=== PATIENT | male | born 1955 | race Caucasian/White ===

== ENCOUNTER → 2016-08-24 | Outpatient (REF) | payer BC | LOC: M SFHCPLAZ 11:25 | PROVIDERS: ATTEND Dermatology | DX: L81.4 Other melanin hyperpigmentation (principal); L57.0 Actinic keratosis ==

== ENCOUNTER → 2016-11-21 | Outpatient (REF) | payer BC | LOC: M SFHCPLAZ 12:00 | PROVIDERS: ATTEND Dermatology | DX: L90.5 Scar conditions and fibrosis of skin (principal) ==

== ENCOUNTER → 2019-02-20 | Outpatient (REF) | payer BC ==
[~2019-02-20] MED LIST: 3ML25MIS IM; ASPI81TA26 PO; ATOR1TAB19 PO; B-12500T2 PO; CALC1CAP31 PO; CINA30TA4 PO; CLON-383 PO; CRANCAP10 PO; CYAN1000VL IM; FISH7.5C PO; FOLBTAB3 PO; FOLI1TAB11 PO; GLYB25TA PO; IMUR50TA10 PO; MONUROL PO; PRED5TA PO
== END ==
LOC: M LAB LCGH 11:33
PROVIDERS: ATTEND Physician Assistant
DX: D04.21 Carcinoma in situ of skin of right ear and external auricular canal (principal)

== ENCOUNTER → 2019-10-09 | Outpatient (REF) | payer BC | LOC: M LAB REF 18:59 | PROVIDERS: ATTEND Dermatology | DX: C44.629 Squamous cell carcinoma of skin of left upper limb, including shoulder (principal) ==

== ENCOUNTER → 2019-12-09 | Outpatient (REF) | payer BC | LOC: M LAB REF 17:13 | PROVIDERS: ATTEND Dermatology | DX: T81.30XA Disruption of wound, unspecified, initial encounter (principal) ==

== ENCOUNTER → 2019-12-18 | Outpatient (REF) | payer BC | LOC: M LAB REF 16:50 | PROVIDERS: ATTEND Physician Assistant | DX: L57.0 Actinic keratosis (principal) ==

== ENCOUNTER → 2020-01-12 | Outpatient (REF) | payer BC | LOC: M LAB REF 17:10 | PROVIDERS: ATTEND Physician Assistant | DX: C44.509 Unspecified malignant neoplasm of skin of other part of trunk (principal) ==

== ENCOUNTER → 2020-03-04 | Outpatient (REF) | payer BC | LOC: M LAB REF 09:00 | PROVIDERS: ATTEND Dermatology | DX: Z85.828 Personal history of other malignant neoplasm of skin (principal) ==

== ENCOUNTER → 2020-09-30 | Outpatient (REF) | payer BC ==
[~2020-09-30] MED LIST changes: +GLYB2.5T7 PO; -GLYB25TA PO
== END ==
LOC: M LAB REF 15:49
PROVIDERS: ATTEND Physician Assistant
DX: L98.9 Disorder of the skin and subcutaneous tissue, unspecified (principal)

== ENCOUNTER → 2020-11-03 | Outpatient (REF) | payer BC | LOC: M LAB REF 09:35 | PROVIDERS: ATTEND Physician Assistant | DX: L57.0 Actinic keratosis (principal); D23.62 Other benign neoplasm of skin of left upper limb, including shoulder ==

== ENCOUNTER → 2021-08-17 | Outpatient (REF) | payer BC | LOC: M SFHCDERM 17:18 | PROVIDERS: ATTEND Physician Assistant | DX: B07.8 Other viral warts (principal) ==

== ENCOUNTER → 2021-11-15 | Outpatient (REF) | payer BC | LOC: M SFHCDERM 17:21 | PROVIDERS: ATTEND Physician Assistant | DX: D48.5 Neoplasm of uncertain behavior of skin (principal) ==

== ENCOUNTER → 2021-12-27 | Outpatient (REF) | payer BC | LOC: M LAB REF 16:13 | PROVIDERS: ATTEND Surgery | DX: L57.0 Actinic keratosis (principal) ==

== ENCOUNTER → 2022-01-04 | Outpatient (REF) | payer BC | LOC: M SFHCDERM 17:26 | PROVIDERS: ATTEND Physician Assistant | DX: D23.62 Other benign neoplasm of skin of left upper limb, including shoulder (principal) ==

== ENCOUNTER → 2023-10-24 | Outpatient (REF) | payer MEDICARE ==
[~2023-10-24] MED LIST changes: -CLON-383 PO; +CLON-442 PO; +FISH10005 PO; -FISH7.5C PO
[2023-10-24 18:06] LABS: TOTAL PROTEIN,RANDOM URINE 26.7 MG/DL (0.0-14.0)
[2023-10-24 18:11] LABS: CREATININE,RANDOM URINE 47.2 MG/DL
== END ==
LOC: M LAB REF 17:05
PROVIDERS: ATTEND Internal Medicine Nephrology
DX: N18.32 Chronic kidney disease, stage 3b (principal)

== ENCOUNTER → 2023-11-05 | Outpatient (REF) | payer MEDICARE ==
[2023-11-05 13:45] LABS: APPEARANCE, URINE CLEAR (CLEAR); BACTERIA, URINE AUTO 1+ (NEGATIVE); BILIRUBIN, URINE AUTO NEGATIVE (NEGATIVE); BLOOD, URINE BLOOD 1+ (NEGATIVE); COLOR, URINE YELLOW (YELLOW); GLUCOSE, URINE (UA) AUTO NEGATIVE (NEGATIVE); KETONE, URINE AUTO NEGATIVE (NEGATIVE); LEUKOCYTE ESTERASE, URINE AUTO 3+ (NEGATIVE); NITRITE, URINE AUTO NEGATIVE (NEGATIVE); PROTEIN, URINE AUTO 1+ mg/dL (NEGATIVE); RBC, URINE AUTO 3 /HPF (0-3); SPECIFIC GRAVITY URINE AUTO 1.005 (1.002-1.035); SQUAMOUS EPITHELIAL CELL UR AU 0 /HPF (0-6); UROBILINOGEN, URINE AUTO 0.2 mg/dL (0.0-2.0); WBC, URINE AUTO 27 /HPF (0-3)
== END ==
LOC: M SFHCPLAZ 12:44
PROVIDERS: ATTEND Internal Medicine Infectious Disease
DX: N39.0 Urinary tract infection, site not specified (principal)

== ENCOUNTER → 2023-11-12 | Outpatient (REF) | payer MEDICARE | LOC: M SFHCDERM 17:32 | PROVIDERS: ATTEND Physician Assistant | DX: D48.9 Neoplasm of uncertain behavior, unspecified (principal) ==

== ENCOUNTER → 2024-03-20 | Outpatient (REF) | payer MEDICARE | LOC: M SFHCDERM 17:47 | PROVIDERS: ATTEND Dermatology | DX: C44.622 Squamous cell carcinoma of skin of right upper limb, including shoulder (principal) ==

== ENCOUNTER → 2024-04-29 | Outpatient (REF) | payer MEDICARE | LOC: M SFHCDERM 17:57 | PROVIDERS: ATTEND Dermatology | DX: D04.5 Carcinoma in situ of skin of trunk (principal) ==

== ENCOUNTER → 2024-05-09 | Outpatient (REF) | payer MEDICARE | LOC: M LAB REF 15:59 | PROVIDERS: ATTEND Surgery | DX: C44.529 Squamous cell carcinoma of skin of other part of trunk (principal) ==

== ENCOUNTER → 2024-07-17 | Outpatient (REF) | payer MEDICARE, BC | LOC: M SFHCDERM 08:27 | PROVIDERS: ATTEND Physician Assistant | DX: C44.41 Basal cell carcinoma of skin of scalp and neck (principal); L57.0 Actinic keratosis ==

== ENCOUNTER → 2024-09-15 | Outpatient (REF) | payer MEDICARE, BC | LOC: M LAB REF 17:18 | PROVIDERS: ATTEND Internal Medicine Nephrology | DX: Z48.22 Encounter for aftercare following kidney transplant (principal); N31.2 Flaccid neuropathic bladder, not elsewhere classified; R82.81 Pyuria ==

== ENCOUNTER → 2025-01-26 | Outpatient (REF) | payer MEDICARE, BC ==
[2025-01-26 17:57] LABS: TOTAL PROTEIN,RANDOM URINE 21.8 MG/DL (0.0-14.0)
== END ==
LOC: M LAB REF 17:02
PROVIDERS: ATTEND Internal Medicine Nephrology
DX: N18.32 Chronic kidney disease, stage 3b (principal)